=== PATIENT | female | born 1950 | race Caucasian/White ===

== ENCOUNTER 2019-06-11 07:36 | Day surgery (SDC) | payer MEDICARE ==
[2019-06-11] MEDS ORDERED: Propofol 200 MG/20 ML SDV ONE ×2 (07:55→09:35)
[2019-06-11] MEDS ORDERED: fentaNYL 100 MCG/2 ML SDV ONE (07:55)
[2019-06-11] MEDS ORDERED: Lactated Ringers 1,000 ML IV SCH (08:15)
--- NOTE | 2019-06-11 10:48 | OR ---
DATE OF PROCEDURE: 06/11/2019 SURGEON: Suman Toscano MD PREOPERATIVE DIAGNOSIS: Colon cancer screening. POSTOPERATIVE DIAGNOSIS: Diverticulosis. PROCEDURE: Colonoscopy to the cecum. ANESTHESIA: IV anesthesia with monitored anesthesia care. INDICATION: This 69-year-old white female is referred for a colonoscopy for colon cancer screening. She says her last colonoscopic exam was done 10 years ago. I counseled her for the procedure, including risks and alternatives, and she gave her informed consent to proceed. DESCRIPTION OF PROCEDURE: The patient was placed in the left lateral decubitus position. IV anesthesia was administered by the Anesthesia Service. Time-out was held. A rectal exam was performed, which was unremarkable. The flexible video Olympus colonoscope was introduced through her anus, up her rectum, and out her colon all the way to the cecum. En route, we saw a few scattered left-sided diverticula. There was no bleeding or inflammation associated with them. Once the cecum was reached, the scope was slowly withdrawn examining the mucosa throughout. No additional mucosal abnormalities were noted. The scope was retroflexed in the rectum with the distal rectum appearing unremarkable. The scope was straightened and removed. She tolerated the procedure well. Suman Toscano MD /[id number] [email or web address]
[2019-06-11 10:52] VITALS: BP 97/66; PULSE 65
== END 2019-06-11 10:50 | disposition home or self-care (01) ==
LOC: JP.SDS 07:36
PROVIDERS: ATTEND Surgery
DX: Z12.11 Encounter for screening for malignant neoplasm of colon (principal); K57.30 Diverticulosis of large intestine without perforation or abscess without bleeding; Z91.013 Allergy to seafood
CPT/HCPCS: G0121; J2704; J3010; J7120

== ENCOUNTER 2023-09-16 18:07 | Emergency (ER) | payer MEDICARE ==
[2023-09-16] MEDS: Alum Hydrox/Mag Hydrox/Simeth 15 ML, Lidocaine 2% 15 ML PO ONE (18:34)
[2023-09-16 18:39] LABS: BASOPHILS ABSOLUTE AUTO 0.03 K/uL (0.00-0.10); BASOPHILS PERCENT AUTO 0.7 % (0.1-1.3); EOSINOPHILS ABSOLUTE AUTO 0.05 K/uL (0.00-0.40); EOSINOPHILS PERCENT AUTO 1.2 % (0.0-5.4); HEMATOCRIT 39.2 % (34.3-46.0); HEMOGLOBIN 13.5 g/dL (11.2-15.5); LYMPHOCYTES ABSOLUTE AUTO 1.73 K/uL (0.8-3.3); LYMPHOCYTES PERCENT AUTO 40.9 % (11.4-47.7); MEAN CORPUSCULAR HGB CONC 34.4 g/dL (31.6-35.5); MEAN CORPUSCULAR VOLUME 90.1 fL (81.4-99.0); MONOCYTES ABSOLUTE AUTO 0.38 K/uL (0.20-0.90); NEUTROPHILS ABSOLUTE AUTO 2.04 K/uL (1.0-7.6); NEUTROPHILS PERCENT AUTO 48.2 % (40.0-78.1); PLATELET COUNT,PLT 200 K/uL (130-375); RED BLOOD CELL COUNT 4.35 M/uL (3.77-5.24); WHITE BLOOD CELL COUNT,WBC 4.2 K/uL (3.2-11.0)
[2023-09-16 19:02] LABS: ANION GAP 12.1 mmol/L (5.0-14.0); BLOOD UREA NITROGEN,BUN 20 mg/dL (7-18); CALCIUM 9.5 mg/dL (8.5-10.1); CARBON DIOXIDE,CO2 28 mmol/L (21-32); CHLORIDE,CL 103 mmol/L (100-108); EST CRCL DRUG DOSING (CG) 40.83 mL/min; ESTIMATED GFR 59 mL/min (>60); GLUCOSE RANDOM 122 mg/dL (74-106); POTASSIUM,K 3.6 mmol/L (3.6-5.2); SODIUM,NA 143 mmol/L (140-148)
[2023-09-16 19:05] LABS: TROPONIN I HIGH SENSITIVITY < 4.0 pg/mL (<=60.3)
[2023-09-16] MEDS ORDERED: Iopamidol 755 Mg/ML 100 ML Bottle IV SCH (19:30)
[2023-09-16] MEDS ORDERED: Sodium Chloride 0.9% 100 ML IV SCH (19:30)
[2023-09-16 20:45] VITALS: BP 118/58; PULSE 68
== END 2023-09-16 21:21 | disposition home or self-care (01) ==
LOC: JP.ED 18:07
DX: K22.4 Dyskinesia of esophagus (principal); K44.9 Diaphragmatic hernia without obstruction or gangrene; Z91.013 Allergy to seafood; Z79.899 Other long term (current) drug therapy; Z86.16 Personal history of COVID-19
CPT/HCPCS: 36415; 71045; 80048; 84484; 85025; 85379; 93005; 99285; A9270